=== PATIENT | male | born 1935 | race Caucasian/White ===

== ENCOUNTER → 2016-10-04 | Outpatient (CLI) | payer MEDICARE, OTHER ==
[~2016-10-04] MED LIST: ALBUTEROL 0.5ML INH; ALBUTEROL17 GM INH; ALBUTEROL20 ml INH; ARAVA; ARAVA10 MG; ASPIRIN81 M2 PO; BISOPROLOL-HCTZ1 TA2; CARDURA; CARDURA4 M1; CARVEDILOL PO; CELEBREX; CELEBREX PO; COREG; ECOTRIN325 MG; FOLIC ACID; FOLIC ACID1 MG; FOLIC ACID1 MG PO; GLUCOPHAGE500 M1 PO; LEVAQUIN PO; LEVOFLOXACIN500 MG PO; LIPITOR; LIPITOR40 MG PO; METHOTREXATE2.5 MG; OMNICEF; PREDNISONE; PREDNISONE10 MG/DOSE PO; PREDNISONE5 M1; PREDNISONE5 M1 PO; TRAMADOL HCL50 M1; ULTRACET TABLE1 EACH; ULTRAM PO; VITAMIN D 3 PO; VITAMIN D-32000 UNI1; ZANTAC150 M1; ZANTAC150 M1 PO; ZOCOR; [UNRECOGNIZED DRUG - OTHER] PO
--- NOTE | ~2016-10-04 | CT98 ---
[facility] A Service of [facility] & [facility] RADIOLOGY TEXT RESULTS PATIENT: VEE TAYLOR LOCATION: [facility] : 39 UNIT #: [id number] AGE: [address]: Gibson Bal MD SEX: M ORDER DR: [id number] [place] [address] [id number] O MR#: [id number] Acc #: [id number] NAME: VEE TAYLOR : 1935 SEX: M STUDY DATE/TIME: 10/04/2016 10:01 UNIT: [facility] ROOM: STUDY DESCRIPTION: CT Lumbar Spine Wo Cont Attending Physician: Gibson Bal M.D. Referring Physician: Gibson Bal M.D. Ordering Physician: Gibson Bal M.D. Primary Care Physician: Tomy Bass M.D. MEDICAL IMAGING REPORT This report is preliminary unless electronic signature is present. EXAM CT lumbar spine without contrast 10/04/2016 HISTORY Low-back pain. Multiple prior lumbar spine surgeries, some screws loose, low back pain, lower back surgery July 2005. COMMENT CT lumbar spine performed in the axial plane without contrast followed by sagittal and coronal reconstructed images. This CT exam was performed with one or more of the following radiation dose reduction techniques: automatic exposure control, adjustment of mA and/or kV according to patient size, and iterative reconstruction. COMPARISON STUDIES There is a comparison study from 06/12/2016. FINDINGS It appears that there has been revision since the prior study I believe on 07/10/2016 based on the fluoroscopic images. There are pedicle screws bilaterally at L2-L3, on the right side at L4, on the left side at L5 and then 2 screws to the iliac wings. Additionally there are screws which terminate in the more inferior L5 vertebral body bilaterally. Since the previous study lower hardware has been revised. The screw fragments at S1, which were fractured previously remain. The screws which are in the iliac bones are new and there is an abnormal lucency around these screws consistent with loosening or infection. The new screws that cross at the inferior aspect of the L5 vertebral body cross the inferior aspect of the 5-1 foramina bilaterally. Please correlate for any L5 radicular symptoms. There is a pedicle screw tract on the right side at L5 where the screw has been removed and on the left side at L4. The patient has extensive posterior bone graft material. There is at least some bony fusion on the STS. [facility] A Service of [facility] & [facility] RADIOLOGY TEXT RESULTS PATIENT: VEE TAYLOR LOCATION: [facility] : 39 UNIT #: [id number] AGE: [address]: Gibson Bal MD SEX: M ORDER DR: right side at L2-3. There is bilateral bony fusion L4-5. Intervertebral disc spacers at 2-3, 3-4, 5-1 levels. There appears to be fusion across the 2-3 intervertebral disc and 3-4 intervertebral disc. There is probably not significant fusion at the 5-1 intervertebral disc. Disc spacers were all present previously. Subtle upper lumbar dextroconvex scoliosis. Subtle reversal of upper lumbar lordosis centered at L1-2. Prominent atherosclerotic vascular calcifications. Partly seen is a large hiatal hernia. At T11-12, no significant abnormality. At T12-L1, bilateral facet degenerative change. No bony canal or foraminal compromise. At L1-2, moderate facet degenerative change. There is a small amount of vacuum disc formation. There is some wire fragment posteriorly. There is what appears to be a large extrusion predominantly right paramedian location about 1.7 x 1 cm dimension at the 1-2 level. It is also noted previously and allowing for technical differences it is unchanged to larger. No bony foraminal impingement. At L2-3, postoperative changes. No bony canal or foraminal compromise. At L3-4, postoperative changes. No bony canal compromise. Mild bony foraminal narrowing on the right. At L4-5, facets are fused. There are postoperative changes probably a broad posterior disc protrusion possibly granulation tissue in the postoperative patient. Likely at least a component of soft tissue canal compromise and there is at least moderate bony foraminal narrowing. At L5-S1 the new bilateral pedicle screws at the inferior aspect of L5 also show abnormal lucency around the more anteriorly and this is also consistent with infection or loosening. They minimally protrude beyond anterior cortex also by a few millimeters bilaterally and there are posterior postoperative changes. There is no bony canal stenosis though there is some impingement on the right lateral recess and the pedicle screws cross the inferior foramina bilaterally as discussed and please correlate for L5 radicular symptoms. On the axial imaging in addition to the lucency around the iliac screws there is disruption of the posterior lateral cortex of the left iliac bone along the pedicle screw. IMPRESSION 1. Since the CT scan 06/12/2016 there has been revision of the lumbar STS. [facility] A Service of [facility] RADIOLOGY TEXT RESULTS PATIENT: VEE TAYLOR LOCATION: [facility] : 39 UNIT #: [id number] AGE: [address]: Gibson Bal MD SEX: M ORDER DR: hardware with placement of bilateral iliac screws. There is abnormal lucency around each of these screws and some cortical disruption on the left side posterolaterally consistent with infection or loosening. The S1 screws have been revised since prior though the more anterior component of these fractured screws remains. There are new screws which cross at the inferior aspect of L5 bilaterally. These screws cross the bilateral L5-S1 foramina and there is some abnormal lucency around these screws. Please correlate for any L5 radicular symptoms and please correlate for any concern for infection or loosening at this level also. 2. 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 This was also present on the prior study and is unchanged to slightly larger allowing for technique differences. 3. Redemonstration of multiple level lumbar fusion changes with the details provided above. Otherwise not obviously changed from the prior exam. STAT * RESULT Dictated by... Aletha Cook M.D. THIS IS AN ELECTRONICALLY VERIFIED REPORT Aletha Cook M.D. at 10/04/2016 5:00 PM Wilian TD: 10/04/2016 16:43 JOB #: [id number] MEDICAL IMAGING REPORT
== END | disposition home or self-care (01) ==
LOC: SCT 09:45
DX: M54.5 Low back pain (principal); M51.26 Other intervertebral disc displacement, lumbar region; Z98.1 Arthrodesis status; Z98.890 Other specified postprocedural states
CPT/HCPCS: 72131

== ENCOUNTER 2017-01-26 03:47 | Emergency (ER) | payer MEDICARE, OTHER | END 2017-01-26 04:45 | disposition home or self-care (01) | LOC: SED 03:47 | DX: R33.9 Retention of urine, unspecified (principal); Z79.82 Long term (current) use of aspirin; Z79.899 Other long term (current) drug therapy; Z79.84 Long term (current) use of oral hypoglycemic drugs; E11.9 Type 2 diabetes mellitus without complications; I10 Essential (primary) hypertension | CPT/HCPCS: 51702; 99283 ==

== ENCOUNTER 2017-02-11 16:38 | Emergency (ER) | payer MEDICARE, OTHER ==
[2017-02-11 18:22] LABS: URINE SOURCE CLEAN CATCH
[2017-02-11 18:29] LABS: URINE APPEARANCE SL CLOUDY; URINE BILIRUBIN NEG (NEG); URINE BLOOD TRACE-INTACT (NEG); URINE COLOR YELLOW; URINE GLUCOSE NEG (NORM); URINE KETONE NEG (NEG); URINE LEUKOCYTE ESTERASE NEG (NEG); URINE NITRATE NEG (NEG); URINE PROTEIN NEG (NEG); URINE SPECIFIC GRAVITY 1.015 (1.003-1.035); URINE UROBILINOGEN 0.2 MG/DL (NORM)
[2017-02-11 18:30] LABS: MICRO INDICATED? YES
[2017-02-11 18:35] LABS: CULTURE INDICATED? YES; URINE BACTERIA 3+ (NEG); URINE SQUAMOUS EPITHELIAL CELL OCCAS /[HPF]; URINE WBC 0-2 /[HPF] (0-5)
== END 2017-02-11 18:45 | disposition home or self-care (01) ==
LOC: SED 16:38
PROVIDERS: Student in an Organized Health Care Education/Training Program
DX: N40.1 Benign prostatic hyperplasia with lower urinary tract symptoms (principal); R33.8 Other retention of urine; J44.9 Chronic obstructive pulmonary disease, unspecified; I10 Essential (primary) hypertension; Z46.6 Encounter for fitting and adjustment of urinary device
CPT/HCPCS: 51702; 81003; 87086; 87088; 87186; 99283